=== PATIENT | male | born 1970 | race Caucasian/White ===

== ENCOUNTER 2025-05-31 22:00 | Emergency (ER) | payer OTHER, SELFPAY ==
[2025-05-31 22:00] VITALS: BMI 29.0
[2025-05-31 22:50] VITALS: BP 149/80; PULSE 86; RESP 16; TEMP 36.8; O2SAT 97
[2025-06-01] MEDS: ONDANSETRON ODT 4 MG TABRAP PO
[2025-06-01] MEDS: FAMOTIDINE 20 MG TABLET 40 MG PO (00:01)
[2025-06-01] MEDS: DICYCLOMINE 10 MG CAPSULE PO (00:02)
--- NOTE | 2025-06-01 00:02 | PD.EDBACK ---
ED Back Injury Pain RME/HPI General Chief Complaint: Flu Like Symptoms Stated Complaint: FEVER Time Seen by Provider: 05/31/25 23:42 Arrival date/time: 05/31/25 22:00 55M with history of CKD presents to ED with several days of cough fevers/chills, non-bloody diarrhea, N/V, and ab/back pain. Limitations: no limitations Related Data Home Medications ?Medication ?Instructions ?Recorded ?Confirmed atorvastatin 20 mg tablet 20 mg PO HS 05/10/21 08/07/21 benazepril 20 mg tablet 20 mg PO QDAY 05/10/21 08/07/21 Previous Rx's ?Medication ?Instructions ?Recorded dicyclomine 10 mg capsule 10 mg PO BID PRN abdominal pain 06/01/25 #14 caps ondansetron 4 mg disintegrating 4 mg PO Q8H PRN nausea and 06/01/25 tablet vomiting #14 tabs Allergies Allergy/AdvReac Type Severity Reaction Status Date / Time No Known Allergies Allergy Unverified 08/09/21 08:17 Review of Systems Review of Systems Systems Reviewed: All systems reviewed, normal except as documented Constitutional Constitutional: Reports as per HPI, Reports chills and Reports fever(s) Gastrointestinal Gastrointestinal: Reports as per HPI, Reports abdominal pain, Reports diarrhea, Reports nausea and Reports vomiting Past Medical History Past Medical History NEUROLOGIC: Negative Neurological Disorders or Seizures CARDIAC: Positive Cardiac Disorders, Hypercholesterolemia and Hypertension; Negative Congestive Heart Failure RESPIRATORY: Negative Chronic Obstructive Pulmonary Disease (COPD) GASTROINTESTINAL: Positive Gastrointestinal Disorders and Gastroesophageal Reflux Disease GENITOURINARY: Negative Genitourinary Disorders or Renal Disease MUSCULOSKELETAL: Positive Musculoskeletal Disorders ENDOCRINE: Positive Endocrine Disorders and Diabetes Mellitus Type 2; Negative Diabetes Mellitus Type 1 HEMATOLOGIC: Negative Blood Disorders or Anemia PSYCHO/SOCIAL: Positive Anxiety OTHER HISTORY: Positive Chicken Pox; Negative Blood Transfusions, Blood Transfusion Reaction, Anesthesia Reactions or Cancer Family History FAMILY HISTORY: Positive Family Cancer (Reletive on fathers side. unsure of type) Social History SMOKING STATUS: Never smoker ED Exam General Limitations: Present no limitations General appearance: Present alert and in no apparent distress Head Head exam: Present atraumatic Neck Neck exam: Present normal inspection, full ROM and trachea midline Chest Chest inspection: Present normal inspection and symmetric chest wall rise Abdominal Exam Abdominal exam: Present soft; Absent tenderness Back Exam Back exam: Present normal inspection and full ROM Neurological Exam Neurological exam: Present alert and oriented X3 Psychiatric Psychiatric exam: Present normal affect and normal mood Skin Skin exam: Present warm, dry, intact and normal color Course Quality Measures none Orders Category Date Time Status CT abdomen pelvis wo con Stat Exams 06/01/25 00:41 Taken COVID-19 Antigen (In-House) Stat Lab 06/01/25 00:07 Completed Drug Screen,Urine Stat Lab 06/01/25 00:07 Completed Influenza A & B Rapid Panel Stat Lab 06/01/25 00:07 Completed Urinalysis, C/S if Indicated Stat Lab 06/01/25 00:07 Completed Dicyclomine [Bentyl] Med 05/31/25 23:42 Discontinued 10 mg PO X1 ONE Famotidine [Pepcid] Med 05/31/25 23:42 Discontinued 40 mg PO X1 ONE Ondansetron Odt [Zofran Odt] Med 05/31/25 23:42 Discontinued 4 mg PO X1 ONE Vital Signs Vital signs: Vital Signs Temperature 98.2 F 05/31/25 22:50 Pulse Rate 86 05/31/25 22:50 Respiratory Rate 16 05/31/25 22:50 Blood Pressure 149/80 H 05/31/25 22:50 Pulse Oximetry (%) 97 05/31/25 22:50 Oxygen Delivery Method Garcia 05/31/25 22:50 O2 at 97% on RA and WNLs Back Pain / Injury MDM Narrative MDM Narrative:: 55M with history of CKD presents to ED with several days of cough fevers/chills, non-bloody diarrhea, N/V, and ab/back pain. Physical exam reveals no CVA or ab tenderness. Patient is afebrile, calm, and alert. Swabs neg. UA clean with some blood. Telerad CT no kidney stones. Some dilated bowel loops suggesting enteritis. GI cocktail improved symptoms. Director Of Midwifery/Staff Midwife given. Patient data External records reviewed:: [facility] previous records Clinical information provided by:: patient Social determinants that could affect healthcare access:: none Patient has the following chronic illnesses:: CKD How is presenting disease/condition affected by chronic disease/condition?: exacerbated by Evaluation data The following diagnostics were reviewed and interpreted by me:: lab results and radiology exam(s) Lab and/or radiology exams considered but not ordered:: ordered Interpretation Summary: above Medications / Prescriptions Medications or Prescriptions considered but not ordered:: ordered Medication administrations:: Medication Administration History Discontinued Medications Dicyclomine HCl (Dicyclomine 10 Mg Capsule) 10 mg PO X1 ONE Stop: 05/31/25 23:43 Last Admin: 06/01/25 00:02 Dose: 10 mg Documented By: EDE Famotidine (Famotidine 20 Mg Tablet) 40 mg PO X1 ONE Stop: 05/31/25 23:43 Last Admin: 06/01/25 00:01 Dose: 40 mg Documented By: EDE Ondansetron HCl (Ondansetron Odt 4 Mg Tabrap) 4 mg PO X1 ONE; Protocol Stop: 05/31/25 23:43 Last Admin: 06/01/25 00:00 Dose: 4 mg Documented By: EDE above Consultations Consultation(s) initiated? (list below): No Diagnosis Differential diagnosis back pain/injury: lumbar radiculopathy, sciatica, strain of lumbar region, renal colic, pyelonephritis, thoracic back pain, AAA, discitis and other (gastroenteritis) Most likely diagnosis given after review of the tests above:: gastroenteritis Admission Indicated Admission indicated?: not indicated Admission Request Was there a request for admission?: No Disposition Plan Disposition Plan: Discharge Discharge Attestation Discharge Attestation: The patient and all family members were given an opportunity to ask questions and understood the discharge instructions. Discharge instructions specifically effects, indications for sooner follow up or return to the emergency department, and the expected course of current diagnosis. Patient condition: Stable Discharge Plan Plan Patient Disposition: HOME (Self Care) Discharge Disposition comment: Stable Prescriptions/Referrals Prescriptions/Med Rec: New ondansetron 4 mg tablet,disintegrating 4 mg PO Q8H PRN (Reason: nausea and vomiting) Qty: 14 0RF dicyclomine 10 mg capsule 10 mg PO BID PRN (Reason: abdominal pain) Qty: 14 0RF No Action atorvastatin 20 mg tablet 20 mg PO HS benazepril 20 mg tablet 20 mg PO QDAY Referrals: Joshua Rosenberg MD [Primary Care Provider, Nephrology] - In 1 week Problem List Clinical Impression: Gastroenteritis Patient/Caregiver Discharge Instructions Education Materials: ED Diarrhea, Viral (Adult) Additional Instructions: Please follow-up with PCP within 24-48 hours and return immediately if symptoms worsen. Keep hydrated. Advance diet as tolerated. Print Language: Wolof Stand Alone Forms: Work/School Release, Patient Portal Info Letter PA/VAN LOADER Supervising Physician PA/VAN LOADER Supervising Physician: Dr. Garcia
[2025-06-01 00:18] LABS: Collection Type, Urine Clean Catch; Squamous Epithelial Cell,Urine 0 /hpf (0-5)
[2025-06-01 00:33] LABS: Amorphous Crystals,Urine Present (Absent); Bacteria,Urine Rare; Bilirubin,Urine Negative (Negative); Blood,Urine 2+ (Negative); Clarity,Urine Turbid (Clear/Hazy); Color,Urine Yellow (Lt Yel-Yel); Culture Indicated,Urine Not Indicated; Glucose, Urine Negative (Negative); Granular Casts,Urine < 1 /hpf (0-1); Ketones,Urine Negative (Negative); Leukocyte Esterase,Urine Negative (Negative); Nitrite,Urine Negative (Negative); PH,Urine 6.0 (5.0-7.0); Protein,Urine 2+ (Neg - Trace); RBC,Urine 4 /hpf (0-3); Specific Gravity,Urine 1.023 (1.001-1.035); Urobilinogen,Urine Negative mg/dL (0.0-1.0); WBC,Urine 1 /hpf (0-5)
[2025-06-01 00:35] LABS: Amphetamine/Methamp Scrn,U Negative (Negative); Barbiturate Screen,Urine Negative (Negative); Benzodiazepines Screen,Urine Negative (Negative); Benzoylecgonine Screen, Ur Negative (Negative); Fentanyl Screen,Urine Negative (Negative); Opiate Screen,Urine Negative (Negative); THC Screen,Urine Negative (Negative)
--- NOTE | 2025-06-01 00:41 | XR_ITS ---
Examination: CT abdomen and pelvis without contrast. Coronal 3-D reconstructions. Sagittal 2-D reconstructions. Date and time of exam: June 01, 2025, 0122 hours INDICATIONS: Fever with bilateral flank pain beginning 2 days ago CTDI: vol (mGy): 8.40 DLP: (mGycm): 524 Technique: Axial images of the abdomen have been obtained, 3 mm slice thickness Intravenous contrast material has not been administered. Low dose protocols were performed. One or more of the following dose reduction techniques were used; automated exposure control, adjustment of the mA and/or KV according to patient size, use of iterative reconstruction technique. 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
[2025-06-01 01:17] LABS: COVID-19 Antigen (In-House) Negative (Negative); Influenza A Ag Negative; Influenza B Ag Negative
--- NOTE | 2025-06-01 02:14 | PRELIM_ITS ---
CT scan of the abdomen and pelvis without intravenous contrast (axial sections with sagittal and coronal reformats) June 01, 2025 at 0122 hours Clinical History: Flank pain; rule out stones No prior study is available for comparison. Findings: Bibasilar and right middle lobe subsegmental atelectasis is seen. No evidence of renal/ureteric calculus or hydroureteronephrosis. There is a 2 cm left renal cyst. There is a 1.1 cm fat density lesion in the right kidney, which may represent an angiomyolipoma. The gallbladder is contracted. The liver, pancreas, spleen and adrenals are unremarkable on this noncontrast study. Fluid filled small bowel loops are noted, nonspecific. No evidence to suggest bowel obstruction. The appendix is within normal limits. The urinary bladder is unremarkable. There is mild prostatomegaly. There is no free fluid or free air. Mild degenerative changes are identified in the spine. Impression: No evidence of renal/ureteric calculus or hydroureteronephrosis. Other findings as described above. Report Electronically Signed By: Nasim Mueller 06/01/2025 2:13:00 AM [EST]
[2025-06-01 02:28] VITALS: RESP 16
== END 2025-06-01 02:28 | disposition home or self-care (01) ==
PROVIDERS: Physician Assistant; Emergency Provider Emergency Medicine; PCP Internal Medicine
DX: K52.9 Noninfective gastroenteritis and colitis, unspecified (principal)
CPT/HCPCS: 74176; 80307; 81001; 87502; 87811; 99283; Q0162; A9270

== ENCOUNTER 2025-06-12 20:36 | Emergency (ER) | payer OTHER, SELFPAY ==
[2025-06-12 20:38] VITALS: BMI 29.0
[2025-06-12 21:10] VITALS: BP 159/94; PULSE 83; RESP 18; TEMP 36.6; O2SAT 97
--- NOTE | 2025-06-12 21:16 | PD.EDRECHK ---
ED Recheck Abnl Lab Rx-RME/HPI General Chief Complaint: Recheck/Abnormal Lab/Rx Stated Complaint: SENT BY DR. ROSENBERG FOR LIVER ENZYMES ELEVATED Time Seen by Provider: 06/12/25 21:20 Arrival date/time: 06/12/25 20:36 RME / HPI RME / HPI narrative: See MDM for Dr. Garcia's HPI documentation. Related Data Home Medications ?Medication ?Instructions ?Recorded ?Confirmed atorvastatin 20 mg tablet 20 mg PO HS 05/10/21 08/07/21 benazepril 20 mg tablet 20 mg PO QDAY 05/10/21 08/07/21 Previous Rx's ?Medication ?Instructions ?Recorded dicyclomine 10 mg capsule 10 mg PO BID PRN abdominal pain 06/01/25 #14 caps ondansetron 4 mg disintegrating 4 mg PO Q8H PRN nausea and 06/01/25 tablet vomiting #14 tabs Allergies Allergy/AdvReac Type Severity Reaction Status Date / Time No Known Allergies Allergy Verified 06/12/25 20:37 Review of Systems Review of Systems Systems Reviewed: All systems reviewed, normal except as documented Past Medical History Past Medical History NEUROLOGIC: Negative Neurological Disorders or Seizures CARDIAC: Positive Cardiac Disorders, Hypercholesterolemia and Hypertension; Negative Congestive Heart Failure RESPIRATORY: Negative Chronic Obstructive Pulmonary Disease (COPD) GASTROINTESTINAL: Positive Gastrointestinal Disorders and Gastroesophageal Reflux Disease GENITOURINARY: Negative Genitourinary Disorders or Renal Disease MUSCULOSKELETAL: Positive Musculoskeletal Disorders ENDOCRINE: Positive Endocrine Disorders and Diabetes Mellitus Type 2; Negative Diabetes Mellitus Type 1 HEMATOLOGIC: Negative Blood Disorders or Anemia PSYCHO/SOCIAL: Positive Anxiety OTHER HISTORY: Positive Chicken Pox; Negative Blood Transfusions, Blood Transfusion Reaction, Anesthesia Reactions or Cancer Family History FAMILY HISTORY: Positive Family Cancer (Reletive on fathers side. unsure of type) Social History SMOKING STATUS: Former smoker ED Exam Narrative Physical exam: See MDM for Dr. Garcia's physical exam documentation. Course Quality Measures none Orders Category Date Time Status US abdomen limited Stat Exams 06/12/25 21:24 Completed Amylase Stat Lab 06/12/25 22:00 Completed BNP [B-Type Natriuretic Peptide] Stat Lab 06/12/25 22:00 Completed Bilirubin,Direct Stat Lab 06/12/25 22:00 Completed CBC Stat Lab 06/12/25 22:00 Completed CK [Creatine Kinase] Stat Lab 06/12/25 22:00 Completed CMP [Comprehensive Metabolic Panel] Stat Lab 06/12/25 22:00 Completed CRP [C-Reactive Protein] Stat Lab 06/12/25 22:00 Completed ESR [Sed Rate (ESR)] Stat Lab 06/12/25 22:00 Completed Gamma Glutamyl Transpeptidase* Stat Lab 06/12/25 22:00 Received Hepatitis Acute Panel Stat Lab 06/12/25 22:00 Completed Lipase Stat Lab 06/12/25 22:00 Completed Magnesium Stat Lab 06/12/25 22:00 Completed PT [Prothrombin Time with INR] Stat Lab 06/12/25 22:00 Completed PTT [Partial Thromboplastin Time] Stat Lab 06/12/25 22:00 Completed Procalcitonin Stat Lab 06/12/25 22:00 Completed TSH [Thyroid Stimulating Hormone] Stat Lab 06/12/25 22:00 Completed Vital Signs Vital signs: Vital Signs Temperature 98 F 06/12/25 21:10 Pulse Rate 83 06/12/25 21:10 Respiratory Rate 18 06/12/25 21:10 Blood Pressure 159/94 H 06/12/25 21:10 Pulse Oximetry (%) 97 06/12/25 21:10 Oxygen Delivery Method Room Air 06/12/25 21:10 Recheck / Abnormal Lab / Rx MDM Narrative MDM Narrative:: This section includes all my notes and documentations, including HPI, PE, and ED course. Bobo Garcia MD HPI: 55-year-old male here for LFT elevation. A couple weeks ago, he was severely ill with fever and vomiting and abdominal pain. Few days ago, on 06/08/2025, Dr. Rosenberg ordered blood tests. With AST 114 and ALT 560, she sent him here for evaluation. Currently, he reports no abdominal pain. No nausea or vomiting. No jaundice. No diarrhea. No other complaints. ROS: All negative except as documented in HPI. Physical Exam: General: Alert and oriented. No acute distress when remaining still. Eyes: Conjunctivae and lids clear. ENT: No nasal congestion. Neck: Supple. Heart: RRR. Lungs: No respiratory distress. Good air movement. No rhonchi, wheezing, rales. Abdomen: Soft and nontender. Normal bowel sounds. No distension. No rebound or guarding. Back: No CVA tenderness. Skin: Warm and dry. Neuro: Alert and oriented X 3. I reviewed all diagnostic test results. My review of the abdominal US report is NAD. Blood tests are remarkable for AST 41, ALT 215. Hepatitis panel pending. At this point, diagnoses include: LFT elevation improving Recommended outpatient monitoring. Based on my best medical judgment, made decision no further evaluation or treatment indicated at this time. Patient understands and agrees to the discharge instructions customized and printed, see below. Discharge Instructions from Dr. Garcia printed for you: 1. Blood tests today show improved liver function blood tests (over 50% better). So it's uncertain what damaged your liver, but it is improving significantly. 2. The ultrasound and CT scan didn't show any obvious cause. 3. Hepatitis panel blood test is pending. 4. See your private doctor on 06/16/2025 for recheck. Ask to review all test results and official radiology reports, to make sure you receive all necessary follow-ups and monitoring. 5. Seek immediate medical care with worsening or with any concerns. Bobo Garcia MD Patient data External records reviewed:: [facility] previous records (Per chart review, patient was seen here on 06/01/25 for gastroenteritis.) Clinical information provided by:: patient Social determinants that could affect healthcare access:: none Patient has the following chronic illnesses:: DM, HTN, HLD How is presenting disease/condition affected by chronic disease/condition?: uneffected by Evaluation data The following diagnostics were reviewed and interpreted by me:: lab results and radiology exam(s) Lab and/or radiology exams considered but not ordered:: none Interpretation Summary: I reviewed all diagnostic test results. My review of the abdominal US report is NAD. Blood tests are remarkable for AST 41, ALT 215. Hepatitis panel pending. Medications / Prescriptions Medications or Prescriptions considered but not ordered:: none Medication administrations:: none Consultations Consultation(s) initiated? (list below): No Diagnosis Recheck Differential Diagnosis: other (Hepatitis, Pancreatitis, Biliary Blockage) Most likely diagnosis given after review of the tests above:: LFT elevation improving Admission Indicated Admission indicated?: not indicated Explain why admission is indicated or not indicated:: With no condition needing emergent intervention, there was no indication for admission. Admission Request Was there a request for admission?: No Disposition Plan Disposition Plan: Discharge Discharge Attestation Discharge Attestation: The patient and all family members were given an opportunity to ask questions and understood the discharge instructions. Discharge instructions specifically effects, indications for sooner follow up or return to the emergency department, and the expected course of current diagnosis. Patient condition: Stable Discharge Plan Plan Patient Disposition: HOME (Self Care) Prescriptions/Referrals Prescriptions/Med Rec: No Action atorvastatin 20 mg tablet 20 mg PO HS benazepril 20 mg tablet 20 mg PO QDAY ondansetron 4 mg tablet,disintegrating 4 mg PO Q8H PRN (Reason: nausea and vomiting) Qty: 14 0RF dicyclomine 10 mg capsule 10 mg PO BID PRN (Reason: abdominal pain) Qty: 14 0RF Referrals: Joshua Rosenberg MD [Primary Care Provider, Nephrology] - In 1 week Problem List Clinical Impression: LFT elevation Patient/Caregiver Discharge Instructions Education Materials: Liver Panel Additional Instructions: Discharge Instructions from Dr. Garcia printed for you: 1. Blood tests today show improved liver function blood tests (over 50% better). So it's uncertain what damaged your liver, but it is improving significantly. 2. The ultrasound and CT scan didn't show any obvious cause. 3. Hepatitis panel blood test is pending. 4. See your private doctor on 06/16/2025 for recheck. Ask to review all test results and official radiology reports, to make sure you receive all necessary follow-ups and monitoring. 5. Seek immediate medical care with worsening or with any concerns. Print Language: Mosotho Stand Alone Forms: Yasmin Award Info., Patient Portal Info Letter
--- NOTE | 2025-06-12 21:24 | XR_ITS ---
Examination: Abdomen sonogram, Limited Date and time of exam: June 12, 2025, 2132 hours INDICATIONS: Elevated liver function tests on laboratory examination June 08, 2025 Technique: Real-time hampton scale transabdominal sonographic images of the upper abdomen obtained. Findings: Contracted gallbladder Common bile duct 0.5 cm Pancreatic head 3.0 cm Liver 14.1 cm fatty infiltration Normal hepatopetal portal venous flow Patent IVC IMPRESSION: Repeat the gallbladder portion of the study with fasting
[2025-06-12 22:21] LABS: Basophils # (Auto) 0.1 Thou/mm3 (0.0-0.2); Basophils % (Auto) 1 % (0-2.5); Eosinophils # (Auto) 0.4 Thou/mm3 (0.0-0.5); Eosinophils % (Auto) 5 % (0-10); Hematocrit 39.0 % (41.0-53.0); Hemoglobin 13.2 g/dL (13.5-16.0); Immature Granulocytes Auto 0.03 Thou/mm3 (0.00-0.00); Lymphocytes # (Auto) 1.8 Thou/mm3 (1.0-4.8); Lymphocytes % (Auto) 22 % (10-50); Mean Corpuscular HGB Conc 33.8 g/dl (31.0-37.0); Mean Corpuscular Hemoglobin 31.1 pg (25.0-35.0); Mean Corpuscular Volume 92 fL (80-100); Monocytes # (Auto) 1.1 Thou/mm3 (0.0-0.8); Monocytes % (Auto) 13 % (0-12); Neutrophils # (Auto) 5.0 Thou/mm3 (1.8-7.7); Neutrophils % (Auto) 60 % (37-80); Nucleated Red Blood Cell # 0.00 Thou/mm3 (0.00-0.00); Nucleated Red Blood Cell % 0 /100 WBC (0); Platelet Count 559 Thou/mm3 (140-440); RDW Standard Deviation 42.9 fL (35.1-43.9); Red Blood Count 4.25 Miln/mm3 (4.50-5.90); White Blood Count 8.4 Thou/mm3 (3.8-10.6)
[2025-06-12 22:32] LABS: Sed Rate (ESR) 49 mm/hr (0-20)
[2025-06-12 22:38] LABS: INR 0.9 (0.9-1.3); Partial Thromboplastin Time 26.7 Seconds (22.0-36.0); Prothrombin Time 9.7 Seconds (9.0-12.2)
[2025-06-12 22:41] LABS: B-Type Natriuretic Peptide 23 pg/mL (0-100)
[2025-06-12 22:53] LABS: Alanine Aminotransferase 215 U/L (10-49); Albumin, Serum 3.7 gm/dL (3.5-5.0); Albumin/Globulin Ratio 1.2 (1.2-2.2); Alkaline Phosphatase 105 U/L (46-116); Amylase 137 U/L (30-118); Anion Gap 9 (7-16); Aspartate Amino Transferase 41 U/L (0-34); BUN/Creatinine Ratio 15 Ratio (12-20); Bilirubin,Direct < 0.1 mg/dL (0.0-0.3); Bilirubin,Total 0.4 mg/dL (0.3-1.2); Blood Urea Nitrogen 24 mg/dL (9-23); C-Reactive Protein 1.1 mg/dL (0.0-0.9); Calcium 9.3 mg/dL (8.3-10.6); Calcium (Corrected) 9.5 mg/dL (8.5-10.1); Carbon Dioxide 24.9 mMol/L (20.0-31.0); Chloride 107 mMol/L (98-107); Creatine Kinase 99 U/L (34-171); Creatinine (Component) 1.6 mg/dL (0.6-1.3); Estimated Creatinine Clearance 53.4 mL/min (>60); Globulin 3.2 gm/dL (2.3-3.5); Glucose 97 mg/dL (74-106); Lipase 59 U/L (12-53); Magnesium 1.6 mg/dL (1.6-2.6); Osmolality,Calculated 285 (275-295); Potassium 4.3 mMol/L (3.4-5.1); Procalcitonin 0.07 ng/ml (0.0-0.49); Sodium 141 mMol/L (136-145); Thyroid Stimulating Hormone 1.24 uIU/mL (0.55-4.78); Total Protein 6.9 gm/dL (5.7-8.2); eGFR 50 See Note
[2025-06-12 23:36] LABS: Hepatitis A Antibody IgM Non Reactive (Non React); Hepatitis B Core Antibody IgM Non Reactive (Non React); Hepatitis B Surface Antigen Non Reactive (Non React); Hepatitis C Antibody Non Reactive (Non React)
[2025-06-19 07:12] LABS: Gamma Glutamyl Transpeptidase* 194 U/L (3-85)
== END 2025-06-12 23:19 | disposition home or self-care (01) ==
PROVIDERS: Emergency Provider Emergency Medicine; PCP Internal Medicine
DX: R79.89 Other specified abnormal findings of blood chemistry (principal)
CPT/HCPCS: 36415; 76705; 80053; 80074; 82150; 82248; 82550; 82977; 83690; 83735; 83880; 84145; 84443; 85025; 85610; 85652; 85730; 86140; 99283